=== PATIENT | female | born 1940 | race Caucasian/White ===

== ENCOUNTER → 2023-03-14 10:03 | Outpatient (CLI) | payer MEDICARE, BC, SELFPAY ==
--- NOTE | ~2023-03-14 | XR_ITS ---
EXAMINATION: XR lumbar spine 2-3V DATE: 03/14/2023 10:42 INDICATION: Low back pain TECHNIQUE: Anteroposterior and lateral views of the lumbar spine, and cone-down lateral view of the l umbosacral junction were obtained. COMPARISON: None. FINDINGS: Bone alignment is normal. There is no fracture. There are 20 degrees of thoracolumbar levos coliosis. The vertebral body heights are maintained. There is severe loss of intervertebral disc spac e height from L2-3 through L5-S1. 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 Severe osteoarthritis i s noted in the hips. There is calcified atherosclerosis of the aorta. IMPRESSION: 1. Severe lumbar spondylosis without acute findings. Reviewed, dictated and finalized at location L. [employer]ING MANAGER
--- NOTE | ~2023-03-14 | XR_ITS ---
EXAMINATION: XR hip LT min 2V INDICATION: Left hip pain TECHNIQUE: Two views of the left hip are obtained. COMPARISON: None available FINDINGS: There is advanced osteoarthritis of the hips. Bone alignment is normal. There is no fractur e. There is severe spondylosis of the visualized lower lumbar spine. IMPRESSION: 1. Advanced osteoarthritis of the hips without acute osseous abnormality. Reviewed, dictated and finalized at location L. STOCK FARMER
== END ==
PROVIDERS: PCP Physician Assistant
DX: M16.12 Unilateral primary osteoarthritis, left hip (principal); M47.896 Other spondylosis, lumbar region
CPT/HCPCS: 72100; 73502

== ENCOUNTER 2023-10-29 14:36 | Outpatient (CLI) | payer MEDICARE, BC, SELFPAY ==
--- NOTE | ~2023-10-29 | MR_ITS ---
EXAMINATION: MR lumbar spine wo con DATE: 10/29/2023 15:11 INDICATION: Lumbar radicular pain. TECHNIQUE: Magnetic resonance imaging (MRI) of the lumbar spine was performed without intravenous con trast. Sequences included sagittal T2-weighted FSE, sagittal T2-weighted FS FSE, sagittal T1-weighted FSE, and axial T2-weighted FSE. COMPARISON: Lumbar spine radiographs 10/29/2023 FINDINGS: There is 23 degrees levoscoliosis of thoracolumbar spine. There is a chronic compression fr acture of L1 with 1/5 loss of height. There is moderately decreased disc height at T11-T12, mildly de creased disc height at T12-L1, moderately decreased disc height at L1-L2, severely decreased disc hei ght from L2 through L3 through L4-L5, and moderately decreased disc height at L5-S1. There is interbo dy fusion at L4-L5. 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 The conus medullaris is at L1-L2. There is clumping and peripheral displacement of the caud a equina from L3 to S1, consistent with arachnoiditis. The following disc levels are specifically dis cussed: L1-L2: The disc is bulging. There is mild bilateral facet joint osteoarthritis. There is mild bilater al neural foraminal stenosis. There is mild central canal stenosis. L2-L3: The disc is bulging and has an annular fissure. There is moderate bilateral facet joint osteoa rthritis. There is mild bilateral neural foraminal stenosis. There is mild central canal stenosis. L3-L4: The disc is bulging and has an annular fissure. There is severe bilateral facet joint osteoart hritis. There is mild bilateral neural foraminal stenosis. There is mild central canal stenosis. L4-L5: The disc does not extend beyond the endplate margin. There is mild bilateral facet joint osteo arthritis. There is mild left neural foraminal stenosis. There is no central canal stenosis. L5-S1: The disc is bulging. There is severe bilateral facet joint osteoarthritis. There is mild bilat eral neural foraminal stenosis. There is mild central canal stenosis. IMPRESSION: 1. Partially visualized syringohydromyelia. Cervical and thoracic spine MRI without and with contrast is recommended. 2. Arachnoiditis. 3. Severe lumbar spondylosis. 4. Thoracolumbar levoscoliosis. Reviewed, dictated and finalized at location A. IMPRESSION: 1. Partially visualized syringohydromyelia. Cervical and thoracic spine MRI wit hout and with contrast is recommended. 2. Arachnoiditis. 3. Severe lumbar spondylosis. 4. Thoracolumbar levoscoliosis.
--- NOTE | ~2023-10-29 | XR_ITS ---
3 VIEWS LUMBAR SPINE Ordering provider: Brook Weston, SARAH History: . Lumbar radicular pain . Comparison: None. FINDINGS: VERTEBRAL BODIES:Levoscoliosis. No visible fracture or subluxation. Degenerative changes of the spin e. Bilateral hip severe osteoarthritic changes more on the left side. DISK SPACES: Narrowing of all disc spaces. Multilevel facet joint disease. SOFT TISSUES: Vascular calcifications. IMPRESSION: No acute osseous abnormality lumbar spine. Reviewed, dictated and finalized at location A.
== END 2023-10-29 14:37 ==
LOC: MICIMG 14:37
PROVIDERS: PCP Physician Assistant; Visit Provider Physician Assistant
DX: M47.26 Other spondylosis with radiculopathy, lumbar region (principal)
CPT/HCPCS: 72110; 72148